=== PATIENT | male | born 1985 | race American Indian/Alaskan Native ===

== ENCOUNTER 2019-07-19 15:56 | Emergency (ER) | payer SELFPAY ==
[2019-07-19] MEDS ORDERED: BUTALB/ACETAMINOPHEN/CAFFEINE TAB PO ONE (19:22)
[2019-07-19] MEDS ORDERED: SODIUM CHLORIDE 0.9% 1000 ML 1,000 ML IV ONE (19:22)
[2019-07-19] MEDS ORDERED: ONDANSETRON 4 MG/2 ML INJ IV ONE (19:22)
[2019-07-19 20:02] LABS: Basophils # (Auto) 0.1 K/mm3 (0.0-0.1); Basophils % (Auto) 1.8 % (0.0-1.8); Eosinophils # (Auto) 0.5 K/mm3 (0.0-0.4); Eosinophils % (Auto) 10.9 % (0.0-4.3); Hematocrit 40.6 % (35.5-45.6); Hemoglobin 13.9 gm/dl (11.8-15.2); Lymphocytes # (Auto) 1.3 K/mm3 (1.2-5.4); Lymphocytes % (Auto) 29.3 % (13.4-35.0); Mean Corpuscular HGB Conc 34 % (32-34); Mean Corpuscular Volume 85 fl (84-94); Monocytes # (Auto) 0.4 K/mm3 (0.0-0.8); Monocytes % (Auto) 8.6 % (0.0-7.3); Platelet Count 241 K/mm3 (140-440); Red Blood Count 4.76 M/mm3 (3.65-5.03); Red Cell Distribution Width 14.1 % (13.2-15.2)
--- NOTE | 2019-07-19 20:18 | Cat Scan Report ---
CT head/brain wo con INDICATION / CLINICAL INFORMATION: 34 years Male; fall - syncope. TECHNIQUE: Routine CT head without contrast. All CT scans at this location are performed using CT dos e reduction for ALARA by means of automated exposure control. COMPARISON: None. FINDINGS: BRAIN / INTRACRANIAL CONTENTS: The brain appears to demonstrate appropriate attenuation. The ventricu lar system is within the upper limits of normal in size and configuration. There is no clear CT evide nce of acute intracranial hemorrhage or significant mass effect. ORBITS: No significant abnormality of visualized orbits. SINUSES / MASTOIDS: No significant abnormality the visualized paranasal sinuses or mastoid air cells. CRANIOCERVICAL JUNCTION: No significant abnormality. ADDITIONAL FINDINGS: None. IMPRESSION: 1. There is no CT evidence of acute intracranial process. Signer Name: Merrill Millan MD Signed: 07/19/2019 8:14 PM Workstation Name: [id number]
--- NOTE | 2019-07-19 20:24 | Cat Scan Report ---
CT cervical spine wo con INDICATION / CLINICAL INFORMATION: 34 years Male; fall - syncope. TECHNIQUE: Axial CT images of the cervical spine were obtained. Sagittal and coronal reformatted images were pr oduced. All CT scans at this location are performed using CT dose reduction for ALARA by means of aut omated exposure control. COMPARISON: None available. FINDINGS: POST-SURGICAL CHANGES: None. ALIGNMENT: There is no significant spondylolisthesis involving the cervical spine. VERTEBRAE: The bone mineralization appears appropriate. There is no clear CT evidence of acute fract ure involving the cervical spine. INTRAVERTEBRAL DISCS: The intervertebral disc spaces are fairly well-maintained without CT evidence o f significant bony of spinal stenosis. There is mild left foraminal narrowing at C5-C6. PARASPINAL SOFT TISSUES: No significant abnormality. ADDITIONAL FINDINGS: None. IMPRESSION: 1. There is no CT evidence of acute fracture involving the cervical spine. Signer Name: Merrill Millan MD Signed: 07/19/2019 8:19 PM Workstation Name: [id number]
[2019-07-19 20:25] LABS: Alanine Aminotransferase 18 units/L (7-56); Albumin 3.7 g/dL (3.9-5); BUN/Creatinine Ratio 14; Blood Urea Nitrogen 11 mg/dL (9-20); Calcium 8.8 mg/dL (8.4-10.2); Hemolysis Index 10
--- NOTE | 2019-07-19 20:30 | Cat Scan Report ---
CT thoracic spine without contrast. CLINICAL HISTORY: Thoracic back pain, trauma. FINDINGS: No previous exams are available for comparison. The thoracic spine demonstrate appropriate alignment without significant spondylolisthesis. There are multilevel mild endplate changes involving the thoracic spine, particularly the mid segments at. However, there is no definitive CT evidence of acute compression fracture involving thoracic spine. There is a well corticated small ossific densit ies situated between the posterior T3 and T4 spinous processes which appears to be a calcification al antoine the ligament. There is some irregularity of the inferior T3 spinous process and correlation be ne eded regarding tenderness within this region or previous trauma. There is no clear CT evidence of sig nificant bony spinal stenosis. All CT scans at this location are performed using the CT dose reductio n for Pixate by means of automated exposure control. IMPRESSION: There is no CT evidence of acute compression fracture involving thoracic spine. There is a small a we ll-corticated ossific density situated between the posterior T3 and T4 spinous processes as detailed above. Signer Name: Merrill Millan MD Signed: 07/19/2019 8:25 PM Workstation Name: [id number]
--- NOTE | 2019-07-19 23:25 | Emergency Department Report ---
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 Patient also complains of nausea and vomiting intermittently since the incident occurred, and also blurry vision and neck pain. Patient denies change in vision, chest pain, shortness of breath, lower back pain, abdominal pain, numbness and tingling or weakness of upper and lower extremities bilaterally. MD Complaint: Headache; syncope; dizziness; fall and head injury -: Sudden, days(s) (2) Location: head, neck Radiation: non-radiation Severity scale (0 -10): 6 Quality: aching, dull Consistency: constant Improves with: none Worsens with: none Associated Symptoms: denies other symptoms, headaches, nausea/vomiting, syncope. denies: confusion, cough, diaphoresis, fever/chills, loss of appetite, malaise, rash, seizure, shortness of breath, weakness, other Treatments Prior to Arrival: NSAID - Related Data Previous Rx's Medication Instructions Recorded Last Taken Type Butalb/Acetamin/Caff 50-325-40 1 - 2 tab PO Q6HR PRN #12 tab 07/19/19 Unknown Rx [Fioricet 50-325-40] Cyclobenzaprine [Flexeril] 10 mg PO Q8H PRN #15 tablet 07/19/19 Unknown Rx Ibuprofen [Motrin] 600 mg PO Q8H PRN #24 tablet 07/19/19 Unknown Rx Meclizine [Antivert] 25 mg PO Q8H PRN #30 tablet 07/19/19 Unknown Rx ED Review of Systems ROS: Stated complaint: CP/DIZZY/PASS OUT FROM FALL Other details as noted in HPI Constitutional: denies: chills, fever Eyes: vision change (blurry). denies: eye pain, eye discharge ENT: denies: ear pain, throat pain Respiratory: denies: cough, shortness of breath, wheezing Cardiovascular: syncope. denies: chest pain, palpitations, dyspnea on exertion, paroxysmal nocturnal dyspnea, other Endocrine: no symptoms reported Gastrointestinal: nausea, vomiting. denies: abdominal pain, diarrhea Genitourinary: denies: urgency, dysuria Musculoskeletal: back pain (mid-upper posterior thoracic ), other (neck pain). denies: joint swelling, arthralgia Skin: denies: rash, lesions Neurological: headache. denies: weakness, paresthesias Psychiatric: denies: anxiety, depression Hematological/Lymphatic: denies: easy bleeding, easy bruising ED Past Medical Hx - Past Medical History Previous Medical History?: No - Surgical History Past Surgical History?: No - Social History Smoking Status: Never Smoker Substance Use Type: None - Medications Home Medications: Home Medications Medication Instructions Recorded Confirmed Last Taken Type Butalb/Acetamin/Caff 50-325-40 1 - 2 tab PO Q6HR PRN #12 tab 07/19/19 Unknown Rx [Fioricet 50-325-40] Cyclobenzaprine [Flexeril] 10 mg PO Q8H PRN #15 tablet 07/19/19 Unknown Rx Ibuprofen [Motrin] 600 mg PO Q8H PRN #24 tablet 07/19/19 Unknown Rx Meclizine [Antivert] 25 mg PO Q8H PRN #30 tablet 07/19/19 Unknown Rx ED Physical Exam - General Limitations: No Limitations General appearance: alert, in no apparent distress - Head Head exam: Present: atraumatic, normocephalic, normal inspection - Eye Eye exam: Present: normal appearance, PERRL, EOMI Pupils: Present: normal accommodation - ENT ENT exam: Present: normal exam, normal orophraynx, mucous membranes moist, TM's normal bilaterally, normal external ear exam - Neck Neck exam: Present: normal inspection, tenderness (Palpable cervical paraspinal musculoskeletal tenderness), full ROM - Respiratory Respiratory exam: Present: normal lung sounds bilaterally. Absent: respiratory distress, wheezes, rales, rhonchi, chest wall tenderness - Cardiovascular Cardiovascular Exam: Present: regular rate, normal rhythm, normal heart sounds. Absent: systolic murmur, diastolic murmur, rubs, gallop - GI/Abdominal GI/Abdominal exam: Present: soft, normal bowel sounds. Absent: distended, t enderness, hyperactive bowel sounds, hypoactive bowel sounds, organomegaly - Extremities Exam Extremities exam: Present: normal inspection, full ROM, normal capillary refill. Absent: tenderness, pedal edema, joint swelling - Back Exam Back exam: Present: normal inspection, full ROM, tenderness (Palpable posterior mid thoracic paraspinal musculoskeletal tenderness), muscle spasm, paraspinal tenderness - Neurological Exam Neurological exam: Present: alert, oriented X3, CN II-XII intact, normal gait, reflexes normal - Psychiatric Psychiatric exam: Present: normal affect, normal mood - Skin Skin exam: Present: warm, dry, intact, normal color. Absent: rash ED Course Vital Signs 07/19/19 16:10 Temperature 97.7 F Pulse Rate 64 Respiratory 16 Rate Blood Pressure 134/72 O2 Sat by Pulse 100 Oximetry ED Medical Decision Making - Lab Data Result diagrams: 07/19/19 19:49 07/19/19 19:49 - EKG Data EKG shows normal: sinus rhythm Rate: normal - EKG Data Interpretation: normal EKG - Radiology Data Radiology results: report reviewed, [place] [address] Cat Scan Report Signed Patient: SWATI BENEDICT V MR#: [id number] 501 : 1985 Acct:[id number] Age/Sex: 34 / M ADM Date: 07/19/19 Loc: ED Attending Dr: Ordering Physician: BERTHA CHARLES Date of Service: 07/19/19 Procedure(s): CT thoracic spine wo con Accession Number(s): [id number] cc: BERTHA CHARLES CT thoracic spine without contrast. CLINICAL HISTORY: Thoracic back pain, trauma. FINDINGS: No previous exams are available for comparison. The thoracic spine demonstrate appropriate alignment without significant spondylolisthesis. There are multilevel mild endplate changes involving the thoracic spine, particularly the mid segments at. However, there is no definitive CT evidence of acute compression fracture involving thoracic spine. There is a well corticated small ossific densities situated between the posterior T3 and T4 spinous processes which appears to be a calcification along the ligament. There is some irregularity of the inferior T3 spinous process and correlation be needed regarding tenderness within this region or previous trauma. There is no clear CT evidence of significant bony spinal stenosis. All CT scans at this location are performed using the CT dose reduction for ALARA by means of automated exposure control. IMPRESSION: There is no CT evidence of acute compression fracture involving thoracic spine. There is a small a well-corticated ossific density situated between the posterior T3 and T4 spinous processes as detailed above. Signer Name: Merrill Millan MD Signed: 07/19/2019 8:25 PM Workstation Name: [id number] Transcribed By: MR Dictated By: Merrill Millan MD Electronically Authenticated By: Merrill Millan MD Signed Date/Time: 07/19/192024 DD/ 18 TD/TT: Findings [facility] [address] [place] [address] Cat Scan Report Signed Patient: SWATI BENEDICT V MR#: [id number] 501 : 1985 Acct:[id number] Age/Sex: 34 / M ADM Date: 07/19/19 Loc: ED Attending Dr: Ordering Physician: BERTHA CHARLES Date of Service: 07/19/19 Procedure(s): CT head/brain wo con Accession Number(s): [id number] cc: BERTHA CHARLES CT head/brain wo con INDICATION / CLINICAL INFORMATION: 34 years Male; fall - syncope. TECHNIQUE: Routine CT head without contrast. All CT scans at this location are performed using CT dose reduction for ALARA by means of automated exposure control. COMPARISON: None. FINDINGS: BRAIN / INTRACRANIAL CONTENTS: The brain appears to demonstrate appropriate attenuation. The ventricular system is within the upper limits of normal in size and configuration. There is no clear CT evidence of acute intracranial hemorrhage or significant mass effect. ORBITS: No significant abnormality of visualized orbits. SINUSES / MASTOIDS: No significant abnormality the visualized paranasal sinuses or mastoid air cells. CRANIOCERVICAL JUNCTION: No significant abnormality. ADDITIONAL FINDINGS: None. IMPRESSION: 1. There is no CT evidence of acute intracranial process. Signer Name: Merrill Millan MD Signed: 07/19/2019 8:14 PM Workstation Name: [id number] Transcribed By: MR Dictated By: Merrill Millan MD Electronically Authenticated By: Merrill Millan MD Signed Date/Time: 07/19/192013 DD/ 10 TD/TT: [place] [address] Cat Scan Report Signed Patient: SWATI BENEDICT V MR#: [id number] 501 : 1985 Acct:[id number] Age/Sex: 34 / M ADM Date: 07/19/19 Loc: ED Attending Dr: Ordering Physician: BERTHA CHARLES Date of Service: 07/19/19 Procedure(s): CT cervical spine wo con Accession Number(s): [id number] cc: BERTHA CHARLES CT cervical spine wo con INDICATION / CLINICAL INFORMATION: 34 years Male; fall - syncope. TECHNIQUE: Axial CT images of the cervical spine were obtained. Sagittal and coronal reformatted images were produced. All CT scans at this location are performed using CT dose reduction for ALARA by means of automated exposure control. COMPARISON: None available. FINDINGS: POST-SURGICAL CHANGES: None. ALIGNMENT: There is no significant spondylolisthesis involving the cervical sp ine. VERTEBRAE: The bone mineralization appears appropriate. There is no clear CT evidence of acute fracture involving the cervical spine. INTRAVERTEBRAL DISCS: The intervertebral disc spaces are fairly well-maintained without CT evidence of significant bony of spinal stenosis. There is mild left foraminal narrowing at C5-C6. PARASPINAL SOFT TISSUES: No significant abnormality. ADDITIONAL FINDINGS: None. IMPRESSION: 1. There is no CT evidence of acute fracture involving the cervical spine. 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 In the ED, patient is alert and oriented x3 and is not in distress. The vital signs are stable. EKG shows normal sinus rhythm with no ST or T wave abnormalities. Head CT scan without contrast shows no acute intracranial abnormalities or hemorrhage. C-spine CT scan without contrast shows no acute cervical spine or disc fractures or subluxations. T-spine CT scan without contrast shows no acute fractures or subluxations. Patient was treated for pain in the ED. Lab test results were reviewed and are all nonactionable including troponin levels. On reevaluation, patient felt better as pain was well-controlled and has not had any syncope, dizziness or nausea and vomiting episodes in the ED. Patient was discharged home on medications and advised to follow-up with his primary care physician in 2 to 3 days for reevaluation or return to the ED immediately if symptoms get worse. - Differential Diagnosis Head injury; Syncope; Dizziness; cervical sprain; muscle spasm Critical care attestation.: If time is entered above; I have spent that time in minutes in the direct care of this critically ill patient, excluding procedure time. ED Disposition Clinical Impression: Dizziness, nonspecific Head injury, acute, without loss of consciousness Qualifiers: Encounter type: initial encounter Qualified Code(s): S09.90XA - Unspecified injury of head, initial encounter Contusion of scalp Qualifiers: Encounter type: initial encounter Qualified Code(s): S00.03XA - Contusion of scalp, initial encounter Acute cervical sprain Qualifiers: Encounter type: initial encounter Qualified Code(s): S13.9XXA - Sprain of joints and ligaments of unspecified parts of neck, initial encounter Disposition: TO HOME OR SELFCARE Is pt being admited?: No Does the pt Need Aspirin: No Condition: Stable Instructions: Minor Head Injury (ED), Dizziness (ED), Cervical Sprain (ED), Muscle Spasm (ED), Syncope (ED) Additional Instructions: All lab test results are unremarkable with no abnormal findings. All imaging test results are also unremarkable with no acute abnormalities. Therefore take pain medications as needed and follow-up with your primary care physician in 2 to 3 days for reevaluation or return to the ED immediately if symptoms get worse. Prescriptions: Meclizine [Antivert] 25 mg PO Q8H PRN #30 tablet PRN Reason: Vertigo Butalb/Acetamin/Caff 50-325-40 [Fioricet 50-325-40] 1 - 2 tab PO Q6HR PRN #12 tab PRN Reason: Headache Cyclobenzaprine [Flexeril] 10 mg PO Q8H PRN #15 tablet PRN Reason: Muscle Spasm Ibuprofen [Motrin] 600 mg PO Q8H PRN #24 tablet PRN Reason: Pain Referrals: [facility] [Outside] - 3-5 Days Time of Disposition: 23:32 Print Language: ALBANIAN
[2019-07-19 23:34] LABS: Bacteria,Urine 1+ /HPF (Negative); Bilirubin,Urine NEG (Negative); Blood,Urine NEG (Negative); Color,Urine Yellow (Yellow); Mucus,Urine FEW /HPF; Protein,Urine <15 mg/dL mg/dL (Negative); Urobilinogen,Urine < 2.0 mg/dL (<2.0); WBC,Urine < 1.0 /HPF (0.0-6.0)
[2019-07-19 23:40] LABS: Amphetamine Screen,Urine PRESUMPTIVE NEGATIVE; Benzodiazepines Screen,Urine PRESUMPTIVE NEGATIVE; Cannabinoid Screen,Urine PRESUMPTIVE NEGATIVE; Cocaine Screen,Urine PRESUMPTIVE NEGATIVE; Methadone Screen,Urine PRESUMPTIVE NEGATIVE; Opiate Screen,Urine PRESUMPTIVE NEGATIVE
[2019-07-20 02:37] VITALS: BP 123/69
== END 2019-07-19 23:55 | disposition home or self-care (01) ==
LOC: ED 15:56
DX: S00.03XA Contusion of scalp, initial encounter (principal); S13.9XXA Sprain of joints and ligaments of unspecified parts of neck, initial encounter; S09.90XA Unspecified injury of head, initial encounter; R42 Dizziness and giddiness; Z79.899 Other long term (current) drug therapy; W01.0XXA Fall on same level from slipping, tripping and stumbling without subsequent striking against object, initial encounter; Y93.89 Activity, other specified; Y92.511 Restaurant or cafe as the place of occurrence of the external cause; Y99.8 Other external cause status
CPT/HCPCS: 36415; 70450; 72125; 72128; 80053; 80307; 81001; 84484; 85025; 93005; 93010; 96361; 96374; 99284; J2405; J7030